=== PATIENT | female | born 1995 | race Caucasian/White ===

== ENCOUNTER 2017-12-23 02:06 | Emergency (ER) | payer SELFPAY ==
[~2017-12-23] VITALS: Ht 170.2 cm; Wt 68.0 kg
--- NOTE | 2017-12-23 02:30 | NUR ---
J LUIS JUAREZ at bedside for MSE.
--- NOTE | 2017-12-23 02:41 | NUR ---
Pt bib ambulance following ingestion of edible marijuana. Pt a&o, but expresses feelings of anxiety following ingestion. Pt ambulatory w/ steady gait. Denies pain, nausea or vomiting. Placed on monitor per MD.
[2017-12-23] MEDS ORDERED: IV NS 1000 ML 1,000 ML IV ONE (02:45)
--- NOTE | 2017-12-23 04:48 | NUR ---
Pt ambulated to bathroom w/ steady gait. No distress noted.
--- NOTE | 2017-12-23 05:49 | NUR ---
Patient discharged to home in stable conditon. Written and verbal after care instructions given. Patient verbalizes understanding of instructions. IV removed w/ catheter intact. No bleeding noted at site. Ambulated from ER w/ steady gait. No distress noted. Pt took all prsonal belongings.
[2017-12-23 05:52] VITALS: BP 125/75
== END 2017-12-23 05:52 | disposition home or self-care (01) ==
LOC: ER 02:15
DX: F12.929 Cannabis use, unspecified with intoxication, unspecified (principal)
CPT/HCPCS: A4663; J7030